=== PATIENT | female | born 2000 | race Two or more races ===

== ENCOUNTER 2021-10-12 15:16 | Emergency (ER) | payer MEDICAID ==
[~2021-10-12] VITALS: Ht 154.9 cm; Wt 72.6 kg
--- NOTE | 2021-10-12 16:21 | NUR ---
DR AMAYA AT BEDSIDE FOR EVAL.
[2021-10-12 17:00] LABS: BASOPHILS % (AUTO) 0.4 % (0.0-2.0); EOSINOPHILS % (AUTO) 1.8 % (0.0-6.0); HEMATOCRIT 43 % (33-45); HEMOGLOBIN 14.4 g/dL (11.5-14.8); LYMPHOCYTES # (AUTO) 4.2 K/uL (0.8-4.8); LYMPHOCYTES % (AUTO) 39.9 % (20.0-44.0); MEAN CORPUSCULAR HGB CONC 33 g/dl (31.0-36.0); MEAN CORPUSCULAR VOLUME 94 fL (82-100); MONOCYTES # (AUTO) 0.8 K/uL (0.1-1.30); MONOCYTES % (AUTO) 7.7 % (2.0-12.0); NEUTROPHILS # (AUTO) 5.2 K/uL (1.8-8.9); NEUTROPHILS % (AUTO) 50.2 % (43.0-81.0); RED BLOOD CELL COUNT(AUTO) 4.61 MIL/uL (4.0-5.2); WHITE BLOOD COUNT (AUTO) 10.4 K/uL (4.3-11.0)
[2021-10-12 17:05] LABS: BILIRUBIN,URINE NEGATIVE (NEGATIVE); COLOR,URINE YELLOW (YELLOW); LEUKOCYTE ESTERASE ,URINE SMALL (NEGATIVE); NITRITE, URINE NEGATIVE (NEGATIVE); PROTEIN,URINE NEGATIVE (NEGATIVE); UGLUCOSE NEGATIVE (NEGATIVE); UROBILINOGEN,URINE 0.2 EU/dL (0.2)
[2021-10-12 17:11] LABS: CALCIUM, SERUM 9.3 mg/dL (8.5-10.1); CREATININE 0.7 mg/dL (0.6-1.3); POTASSIUM 3.5 mmol/L (3.5-5.1)
[2021-10-12 17:17] LABS: PLATELET COUNT (AUTO) 372 K/uL (150-450)
[2021-10-12 17:23] LABS: BACTERIA,URINE Rare /HPF (None Seen); SQUAMOUS EPITHELIAL CELL,UR Moderate /HPF (None Seen)
[2021-10-12] MEDS ORDERED: CEFTRIAXONE 1GM BAG (ER ONLY) 1 GM/50 ML PIGGYBACK IV ONE (18:00)
[2021-10-12] MEDS ORDERED: CEFTRIAXONE 1GM BAG (ER ONLY) 50 ML IV ONE (18:13)
--- NOTE | 2021-10-12 18:15 | NUR ---
PATIENT TO RADIOLOGY FOR ABDOMINAL CCT SCAN VIA GURNEY.
[2021-10-12] MEDS ORDERED: IV NS 0.9% 1,000 ML BAG IV ONE (18:30)
--- NOTE | 2021-10-12 19:34 | NUR ---
bibs c/o DYSURIA WITH LOWER ABD. PAIN X 3 DAYS. PT AWAKE AND ALERT X 4 AMBULATORY WITH STEADY GAIT. CHANGED INTO GOWN AND PLACED ON MONITOR AND V/S STABLE.
[2021-10-12] MEDS ORDERED: CEPH500C2 PO (19:38)
--- NOTE | 2021-10-12 19:57 | NUR ---
Patient discharged to home in stable condition. Written and verbal after care instructions given. Patient verbalizes understanding of instruction. IV line removed and PT ambulated out of ER with steady gait.
[2021-10-12 19:59] VITALS: BP 130/69
== END 2021-10-12 19:59 | disposition home or self-care (01) ==
LOC: ER 15:16
DX: N20.0 Calculus of kidney (principal); Z79.899 Other long term (current) drug therapy
CPT/HCPCS: 36415; 74176; 80048; 81001; 84703; 85025; 87086; 96365; 99284; J0696; J7030